=== PATIENT | male | born 1965 | race Caucasian/White ===

== ENCOUNTER → 2024-01-17 09:01 | Outpatient (REF) | payer BC, SELFPAY | LOC: CLAB 09:01 | PROVIDERS: ATTENDING PHYSICIAN Surgery | DX: Z86.19 Personal history of other infectious and parasitic diseases (principal) | CPT/HCPCS: 88305 ==

== ENCOUNTER → 2024-02-08 14:56 | Outpatient (REF) | payer BC, SELFPAY | LOC: RCS 14:56 | PROVIDERS: ATTENDING PHYSICIAN Internal Medicine Cardiovascular Disease; FAMILY PHYSICIAN Family Medicine | DX: R06.09 Other forms of dyspnea (principal) | CPT/HCPCS: 93306 ==

== ENCOUNTER → 2024-04-09 09:12 | Outpatient (REF) | payer OTHER, SELFPAY | LOC: RAD 09:12 | PROVIDERS: ATTENDING PHYSICIAN Family Medicine | DX: R07.89 Other chest pain (principal) | CPT/HCPCS: 74246 ==

== ENCOUNTER → 2024-04-24 08:14 | Outpatient (REF) | payer OTHER, SELFPAY | LOC: HWRAD 08:14 | PROVIDERS: ATTENDING PHYSICIAN Family Medicine | DX: R07.89 Other chest pain (principal) | CPT/HCPCS: 76700 ==

== ENCOUNTER → 2024-05-04 16:54 | Outpatient (REF) | payer OTHER, SELFPAY | LOC: MRI 3T 16:54 | PROVIDERS: ATTENDING PHYSICIAN Family Medicine | DX: K83.8 Other specified diseases of biliary tract (principal); R74.8 Abnormal levels of other serum enzymes | CPT/HCPCS: 74181 ==

== ENCOUNTER → 2024-10-08 13:28 | Outpatient (REF) | payer OTHER, SELFPAY | LOC: MRI 3T 13:28 | PROVIDERS: ATTENDING PHYSICIAN Internal Medicine Gastroenterology; FAMILY PHYSICIAN Family Medicine | DX: R79.89 Other specified abnormal findings of blood chemistry (principal); R93.5 Abnormal findings on diagnostic imaging of other abdominal regions, including retroperitoneum | CPT/HCPCS: 74183; A9575 ==

== ENCOUNTER → 2025-05-13 07:17 | Outpatient (REF) | payer OTHER, SELFPAY | LOC: MRI 07:17 | PROVIDERS: ATTENDING PHYSICIAN Physical Medicine & Rehabilitation; FAMILY PHYSICIAN Family Medicine | DX: M54.12 Radiculopathy, cervical region (principal) | CPT/HCPCS: 72141 ==